=== PATIENT | female | born 1970 | race Caucasian/White ===

== ENCOUNTER → 2022-06-10 15:07 | Outpatient (CLI) | payer BC, SELFPAY ==
--- NOTE | ~2022-06-10 | MM_ITS ---
EXAMINATION: MM screening herbert BI w henry HISTORY: Screening mammogram TECHNIQUE: Craniocaudal and mediolateral oblique 3-D tomosynthesis images were obtained and synthetic 2-D images were generated. CAD analysis was submitted and interpreted. COMPARISON: No prior mammogram is available for comparison at this institution. BREAST PARENCHYMAL COMPOSITION: There are scattered areas of fibroglandular density. FINDINGS: There is no evidence of suspicious mass, calcification, or architectural distortion to sugg est malignancy in either breast. There has been no suspicious interval change. IMPRESSION: 1. No mammographic evidence of malignancy. 2. Recommend routine screening mammography in one year. Negative Reviewed, dictated and finalized at location A.
--- NOTE | ~2022-06-10 | US_ITS ---
EXAMINATION: US pelvic complete w TV DATE: 06/10/2022 15:55 INDICATION: Endometrial hyperplasia TECHNIQUE: Multiple transabdominal and endovaginal sonographic images of the pelvis were obtained. COMPARISON: None. FINDINGS: The uterus measures 10.8 x 5.1 x 6.4 cm cm. The endometrial complex measures 11 mm in thickness. Sub tle 1.8 x 1.2 x 1.4 cm isoechoic mass in the anterior uterine fundus likely representing a small uter ine fibroid. There is a 2.6 x 2.3 x 3.0 cm soft tissue mass with internal vascular flow on color Dopp ler abutting the right side of the uterus, unclear whether this is contiguous with the uterus such as a subserosal fibroid or separate which case this would most likely represent the right ovary. The le ft ovary measures 3.8 x 2.2 x 3.7 cm. There is a 2.9 x 1.9 x 2.6 cm anechoic cyst in the left ovary. Vascular flow seen in the left ovary at the periphery of the cyst. There is no free fluid in the pelv is. IMPRESSION: 1. Endometrial complex measures 11 mm which would be thickened for postmenopausal state. This could b e consistent with provided history of endometrial hyperplasia although differential would include end ometrial carcinoma and hysteroscopy would be recommended if not previously performed for confirmation . 2. 1.8 cm isoechoic nodule in the anterior fundus likely representing a uterine fibroid. 3. Additional 3.0 x 2.6 x 2.3 cm isoechoic nodule along the right side of the uterine fundus which co uld represent an additional subserosal fibroid versus the right ovary. Reviewed, dictated and finalized at location A. IMPRESSION: 1. Endometrial complex measures 11 mm which would be thickened for postmenopaus al state. This could be consistent with provided history of endometrial hyperpl brigette although differential would include endometrial carcinoma and hysteroscopy would be recommended if not previously performed for confirmation. 2. 1.8 cm isoechoic nodule in the anterior fundus likely representing a uterine fibroid. 3. Additional 3.0 x 2.6 x 2.3 cm isoechoic nodule along the right side of the u terine fundus which could represent an additional subserosal fibroid versus the right ovary.
== END ==
PROVIDERS: Visit Provider Nurse Practitioner Family
DX: Z12.31 Encounter for screening mammogram for malignant neoplasm of breast (principal); N85.00 Endometrial hyperplasia, unspecified
CPT/HCPCS: 76830; 76856; 77063; 77067

== ENCOUNTER 2023-07-07 00:49 | Day surgery (SDC) | payer BC, SELFPAY ==
[2023-06-28 16:40] VITALS: BMI 29.4
--- NOTE | 2023-06-28 16:47 | PC.NURSE ---
Report to the Outpatient Waiting Room, entrance under the green pavilion located off [facility], at time _1045_ on date _[id number]_. Planned Procedure Time: _1245_. Time changes happen often and if your time is changed the preop area will call you the afternoon before. - You and your visitor will be asked to self-screen and do not enter if you have any COVID symptoms. - A mask is optional within the hospital at this time. Patients may have clear liquids (water, carbonated beverages, clear teas, apple juice) until 3 hours prior to surgery with a maximum of 20 ounces. - No food from midnight until time of surgery Take the following medications with a SIP of water the morning of surgery: __None DO NOT STOP ANY OF YOUR OTHER PRESCRIPTION MEDICATIONS PRIOR TO SURGERY ?EXCEPT THE FOLLOWING Medications to discontinue per physician __All supplements Date to take last vcrz___[id number] Please no make-up, nail tunisian, hairspray, perfume, deodorant, or body powder the day of surgery. No jewelry (including any body piercings) or valuables the day of surgery, leave them at home. Please take a shower or bath the night before, or the morning of, surgery with an antibacterial soap. Wear comfortable, loose fitting clothing. - Jewelry must be removed prior to entering the operating room. Rings and piercings that are not removed may be cut off. - The hospital will not accept responsibility for valuables. - Please leave all valuables, including medications, at home the day of surgery. If you are going home after surgery, a licensed jukebox route driver must drive you home. - NO public transportation without another adult if you receive anesthesia. - We recommend that an adult stay with you for 24 hours following discharge. - We also recommend that you do not drive, make important decision, drink alcoholic beverages, or take any drugs that were not prescribed by your health care provider for at least 24 hours after your discharge time. Follow any additional instructions given to you from your surgeon. If you or anyone in your household have experienced Covid symptoms in the past week, please notify your surgeon or the nurse liaison at the phone number below for possible testing. Telephone instructions given to ___Patient__and asked if any additional questions and then verbalized understanding. Patient advised to call surgeon office or pre surgery nurse liaison [phone] if any additional questions.
--- NOTE | 2023-07-05 07:41 | PM.IMHP ---
H&P: HPI History of Present Illness Date/Time: 07/05/23 07:41 Chief Complaint: Postmenopausal bleeding Narrative: Is a 52-year-old female referred by Dr. Suzette ritchie had an ultrasound that showed thickened endometrium. She is interested in hormone replacement. She has fibroids on the findings as well she is offered hysteroscopy dilatation curettage will have a Pap smear done at the same time. Risks and benefits reviewed including but not exclusive of , aspiration pneumonia, bleeding, transfusion, perforation injury to bowel, bladder, ureters, or other internal organs with need for open laparotomy. She had all questions answered and asked to proceed [facility] Social History Social History Smoking status: Never smoker Living arrangements: with family Spiritual care concerns: No Meds Home Medications and Allergies Home Medications Medication Instructions Recorded Confirmed Type Bifidobacterium animalis 6 mg (5 6 mg PO BID 06/28/23 06/28/23 History billion cell) capsule (Metabiotic) Lactobacillus 40-Bifidobact 1 cap PO DAILY 06/28/23 06/28/23 History 3-S.thermophilus 100 billion cell capsule (Probiotic) berberine-herbal comb no.18 capsule 1 cap PO BID 06/28/23 06/28/23 History Allergies Allergy/AdvReac Type Severity Reaction Status Date / Time No Known Allergies Allergy Verified 06/28/23 16:38 Exam Const: General: cooperative, healthy appearing and comfortable Nutritional Appearance: overweight Orientation/consciousness: oriented to person, oriented to place and oriented to time HENMT: Head: normal to inspection Chest: Chest palpation & inspection: normal inspection of the chest Resp: Effort & Inspection: normal respiratory effort Cardio: Rate: regular rate Rhythm: regular rhythm Heart sounds: S1 normal heart sound present and S2 normal heart sound present GI: Inspection: normal to inspection : External Female Exam: normal external appearance Speculum Exam - Vagina: normal appearance of the vagina Speculum Exam - Cervix: normal appearance of the cervix Bimanual exam- vagina & uterus: enlarged Bimanual Exam- Adnexa, other: normal adnexae Assessment and Plan Assessment and plan (1) Postmenopausal bleeding: Code(s): N95.0 - Postmenopausal bleeding Status: Acute Plan Patient will undergo Pap smear with hysteroscopy dilatation and curettage
--- NOTE | 2023-07-07 06:33 | WPDHPUPDATE1 ---
History and Physical Update Update Date/Time: 07/07/23 06:33 History and Physical has been reviewed, including an updated exam of the patient. There are NO changes in the patient's condition. Risks, benefits, and alternatives have been discussed and questions answered. Patient agrees to proceed with procedure.
[2023-07-07] MEDS: ACETAMINOPHEN 500 MG TABLET 1000 MG PO (11:17)
[2023-07-07] MEDS: LACTATED RINGERS 1,000 ML 30 ML IV CONT (11:30)
[2023-07-07 11:32] VITALS: BP 162/101; PULSE 73; RESP 16; TEMP 36.9; O2SAT 100
--- NOTE | 2023-07-07 11:32 | WPDANESEPPF ---
Anes - Initial Pre Proc Eval Procedure: Operation Date: 07/07/23 12:45 Proposed Procedures p Hysteroscopy, Dilation and Curettage with Pap Smear - Spencer Sandoval MD Date/Time: 07/07/23 11:32 Surgeon: Spencer Sandoval MD Pre Op Diagnosis: Abn Ultrasound, Thickened Endometrium, Needing PAP Patient Data Age: 53 Gender: F Height: 1.63 m Weight: 77.7 kg Allergies Allergy/AdvReac Type Severity Reaction Status Date / Time No Known Allergies Allergy Verified 07/07/23 11:05 Home Medications Medication Instructions Recorded Confirmed Type Bifidobacterium animalis 6 mg (5 6 mg PO BID 06/28/23 06/28/23 History billion cell) capsule (Metabiotic) Lactobacillus 40-Bifidobact 1 cap PO DAILY 06/28/23 06/28/23 History 3-S.thermophilus 100 billion cell capsule (Probiotic) berberine-herbal comb no.18 capsule 1 cap PO BID 06/28/23 06/28/23 History hydrocodone 5 mg-acetaminophen 325 1 tablet PO Q4H PRN pain #14 tabs 07/07/23 Rx mg tablet Patient hx anesthesia problems: none Family hx anesthesia problems: none Results Review: All pre-operative results and documents have been reviewed as part of the pre-operative evaluation. [facility] Past Medical History Medical History (Updated 07/07/23 @ 11:32 by Spencer Bean MD) Overweight Surgical History Surgical History (Updated 07/07/23 @ 11:32 by Spencer Bean MD) H/O laparoscopy History of appendectomy Social History Social History Smoking status: Never smoker Living arrangements: with family Spiritual care concerns: No Anes - Eval Final PreProcedure Day of Procedure 07/07/23 11:32 Patient weight: overweight Heart: regular rate and rhythm Lungs: clear to auscultation Airway: Mallampati scale class II Neurological: alert and oriented Last oral intake: >/= 8 hours ASA classification: II Emergent: no Anesthetic plan: proceed Anesthesia type and monitoring: general GIVS and standard monitoring Results Review: All pre-operative results and documents have been reviewed as part of the pre-operative evaluation. Informed Consent: The patient's anesthetic plan and its attendant risks and benefits were discussed with the patient/family/POA. Questions were solicited and answers provided to the satisfaction of the patient/family/POA.
[2023-07-07] MEDS: KETOROLAC 30 MG/ML VIAL (*BKC) IV PUSH (13:09)
[2023-07-07] MEDS: LIDOCAINE HCL 1% LOCAL INJ 20 ML VIAL 10 ML INFILTRATE (13:09)
--- NOTE | 2023-07-07 13:15 | W.PM.PROC2 ---
Procedure Note - Detailed Date of Procedure 07/07/23 Pre-op Diagnosis Abn Ultrasound, Thickened Endometrium, Needing PAP Post-op Diagnosis Same Procedure Performed Hysteroscopy/dilatation curettage Surgeon Spencer Sandoval MD Anesthesia MAC and Local Indications Cyst 53-year-old female thickened endometrium on imaging Findings Benign atrophic endometrium as expected for a woman of her age Description of Procedure Patient was prepped draped in sterile fashion placed in dorsal lithotomy position. Under excellent IV sedation weighted speculum placed in posterior fornix of vagina. Anterior lip of the cervix grasped with single-tooth tenaculum. 2.5cc 1% xylocaine anesthesia placed at 2, 4, 8, 10:00 a.m. of the cervix. Uterus sounded to 8cm. Serial dilatation with fragmented dilators performed followed by passes the a beaded hysteroscope using normal saline as visualizing benign atrophic endometrium was seen each fallopian tube os could be seen. No abnormalities were seen and the uterus lining could be seen completely in 360?. The instruments were withdrawn after scraping the uterus over the entire 360?. All sponge, needle, instrument counts were correct. There were no immediate complications Estimated Blood Loss 5 Drains No Packing No Pathology Yes Complications No immediate complications Condition Stable Disposition PACU
[2023-07-07 13:19] VITALS: BP 117/73; PULSE 72; RESP 12; O2SAT 96
[2023-07-07 13:49] VITALS: BP 126/84; PULSE 70
[2023-07-07 14:20] VITALS: BP 134/68; PULSE 66
== END 2023-07-07 14:27 | disposition home or self-care (01) ==
PROVIDERS: Visit Provider Obstetrics & Gynecology
PROC: 0U5B8ZZ Destruction of Endometrium, Via Natural or Artificial Opening Endoscopic (ICD-10-PCS; CPT 58563; principal; 2023-07-07 12:45)
DX: N85.8 Other specified noninflammatory disorders of uterus (principal)
CPT/HCPCS: 58558; 88305; A9270; J1885; J2250; J2405; J2704; J3010; J7120

== ENCOUNTER → 2023-07-26 16:02 | Outpatient (CLI) | payer BC, SELFPAY ==
--- NOTE | ~2023-07-26 | MM_ITS ---
EXAMINATION: MM screening herbert BI w henry HISTORY: Screening mammogram TECHNIQUE: Craniocaudal and mediolateral oblique 3-D tomosynthesis images were obtained and synthetic 2-D images were generated. CAD analysis was submitted and interpreted. COMPARISON: 06/10/2022 bilateral screening mammogram BREAST PARENCHYMAL COMPOSITION: There are scattered areas of fibroglandular density. FINDINGS: There is no evidence of suspicious mass, calcification, or architectural distortion to sugg est malignancy in either breast. There has been no suspicious interval change. IMPRESSION: 1. No mammographic evidence of malignancy. 2. Recommend routine screening mammography in one year. BI-RADS Category 1: Negative Reviewed, dictated and finalized at location A.
== END ==
PROVIDERS: Visit Provider Obstetrics & Gynecology
DX: Z12.31 Encounter for screening mammogram for malignant neoplasm of breast (principal)
CPT/HCPCS: 77063; 77067